=== PATIENT | male | born 1965 | race Caucasian/White ===

== ENCOUNTER 2017-05-01 10:35 | Day surgery (SDC) | payer MEDICAID ==
[~2017-05-01 10:35] MED LIST: Acetaminophen 500 MG Tab PO ONE; Bupivacaine 0.5%/EPINEPHrine 1:200,000 50 ML MDV ONE; EPINEPHrine 1 MG/ML SDV ONE; Gabapentin 300 MG Cap PO ONE; Povidone-Iodine 10% Soln 118.25 ML Bottle ONE; Scopolamine 1.5 MG Transdermal Patch TOP SCH
[2017-05-01] MEDS ORDERED: Lactated Ringers 1,000 ML IV SCH (11:30)
[2017-05-01] MEDS ORDERED: fentaNYL 250 MCG/5 ML SDV ONE (11:34)
[2017-05-01] MEDS ORDERED: Rocuronium 50 MG/5 ML Vial ONE (11:35)
[2017-05-01] MEDS ORDERED: Glycopyrrolate 0.2 MG/ML 5 ML MDV ONE (11:35)
[2017-05-01] MEDS ORDERED: Neostigmine Methylsulfate 1 MG/ML 5 ML Syringe ONE (11:35)
[2017-05-01] MEDS ORDERED: Succinylcholine 200 MG/10 ML MDV ONE (11:35)
[2017-05-01] MEDS ORDERED: Propofol 200 MG/20 ML SDV ONE ×2 (11:35→13:09)
[2017-05-01] MEDS ORDERED: Dexamethasone 4 MG/ML SDV ONE (11:35)
[2017-05-01] MEDS ORDERED: Ondansetron 4 MG/2 ML SDV ONE (11:35)
[2017-05-01] MEDS ORDERED: Bupivacaine 0.5% 30 ML SDV ONE (11:41)
[2017-05-01] MEDS ORDERED: Clindamycin Phosphate 900 MG in Sodium Chloride 0.9% 100 ML IV ONE (12:00)
[2017-05-01] MEDS ORDERED: Ropivacaine 49.25 ML, Ketorolac 30 MG, EPINEPHrine 0.5 MG, cloNIDine 80 MCG, Sodium Chl... INJECT ONE ×5 (12:15)
[2017-05-01] MEDS ORDERED: VERIFY SCOPOLAMINE PATCH TOP SCH (13:00)
[2017-05-01] MEDS ORDERED: ePHEDrine 50 MG/ML SDV ONE (13:09)
[2017-05-01] MEDS ORDERED: Ketorolac 60 MG/2 ML SDV IM ONE (14:30)
[2017-05-01 16:28] VITALS: BP 100/62
--- NOTE | 2017-05-01 19:34 | OR ---
DATE OF PROCEDURE: 05/01/2017 PREOPERATIVE DIAGNOSES: 1. Right shoulder rotator cuff tear. 2. Right shoulder impingement. 3. Right shoulder bursitis. POSTOPERATIVE DIAGNOSES: 1. Right shoulder rotator cuff tear. 2. Right shoulder impingement. 3. Right shoulder bursitis. PROCEDURE: 1. Right shoulder arthroscopy with subacromial decompression. 2. Limited debridement of glenohumeral joint, labrum, and subacromial space with bursa. 3. Mini open rotator cuff repair using 2 JuggerKnot anchors from [place] and 2 [place] anchors. SR. PAYROLL PROCESSOR: DEBRA Chu Physician assistant to the ceo, Rachael Grimaldo NP, played an essential role in assisting in this case, helping to position the patient, retract structures as needed, as well as suturing and cutting sutures as indicated. Her presence improved patient's safety and decreased operative time. ANESTHESIA: General endotracheal intubation plus interscalene block. ESTIMATED BLOOD LOSS: 25 mL. FLUIDS: Lactated Ringer solution. COMPLICATIONS: None. SPECIMEN: None. DISCHARGE DISPOSITION: Stable to PACU. INDICATIONS FOR THE PROCEDURE: The patient was seen preoperatively in the clinic. He had failed nonoperative treatment. Preoperative imaging confirmed the above-mentioned diagnosis. Risks and benefits of the procedure were explained to the patient, and informed consent was obtained. DETAILS OF PROCEDURE: The patient was seen preoperatively by myself and the anesthesia staff in the preop holding area where the operative site was marked. He was brought to the operative suite by the anesthesia staff for an interscalene block which was performed on the right side as well as general endotracheal intubation. He was placed into a beachchair position. All extremities were found to be well padded. The right upper extremity was then prepped and draped in a sterile manner. Time-out was called identifying the correct procedure, the correct site, the correct patient, and the antibiotics had begun within the appropriate period of time. A posterior portal was first made and then the glenohumeral joint was entered with a trocar. I was then able to see that we had some minor labral tearing as well as some synovitis as well as the preoperatively diagnosed rotator cuff tear present. I then used a spinal needle to place my anterior portal and then used a blade and a disposable trocar. I then debrided the glenohumeral joint and then used an ablation unit to clean up any free edges. After this had been performed, I then removed the instruments from the anterior portal and then from the posterior portal, repositioned in the subacromial space. Subacromial space was very tight. I had placed a lateral portal and then entered that with a shaver. Extensive bursitis was present. I spent a lot of time doing a bursectomy and then rotated the shoulder to see the rotator cuff tear from the subacromial space side. This was a large retracted rotator cuff tear of the supraspinatus and a few fibers of the infraspinatus. After the debridement was complete, I used the ablation unit to delineate the acromion, which was a type 2. I then used a andrés to perform my subacromial decompression removing the inferior hook of the acromion and then used ablation to clean up any free edges and to control any bleeding. After this had been performed, I then removed all my instruments and got out as much fluid as possible. I then made an incision approximately 1.5-cm lateral to the acromion due to the patient's size, and this was extended approximately 5 cm in an anterior to posterior direction. When bleeding was controlled with Bovie electrocautery, I used Metzenbaum as well as pickups to go through the raphae between the anterior and medial deltoid bundles. This spread quite nicely without any muscular dissection and then I used the Gelpi to go in an anterior-posterior direction for visualization and then used an [employer] [place] retractor to pull superiorly. This was a very tight space, but I was able to insert a Willa and then grab the retracted supraspinatus tendon. I then had to release this because I did not have enough room for suture passer. I then placed my posterior JuggerKnot anchor first and then used a suture passer to run all 4 strands through the posterior portion of the cuff. We then rotated the shoulder externally and then placed another JuggerKnot anchor anteriorly and then placed those sutures with the suture passer as well as free needles. We had tied these under tension. I then placed 2 lateral anchors starting posteriorly and then anteriorly and then used 2 strands from my posterior anchor, 2 strands from my anterior anchor to the posterior one and then the 2 again from each JuggerKnot anchor through the anterior anchor under tension. This provided excellent stability. I then felt my cuff which was nicely tensioned. We then copiously irrigated with saline and placed bobby through my anterior and posterior portals as well as bobby through the lateral incision after we placed a Stratafix through the raphae and the deltoid to close the joint. We did apply some injections with local anesthetic with epinephrine to control some bleeding. We then placed a sterile dressing and then transferred the patient to his hospital bed and allowed him to awaken from anesthesia. The patient was then transferred to the PACU in stable condition. Floyd Brown DO /[id number]
== END 2017-05-01 16:33 | disposition home or self-care (01) ==
LOC: JP.SDS 10:35
PROVIDERS: ATTEND Orthopaedic Surgery
DX: M75.121 Complete rotator cuff tear or rupture of right shoulder, not specified as traumatic (principal); M75.41 Impingement syndrome of right shoulder; M75.51 Bursitis of right shoulder; I10 Essential (primary) hypertension; F32.9 Major depressive disorder, single episode, unspecified; E66.01 Morbid (severe) obesity due to excess calories; K21.9 Gastro-esophageal reflux disease without esophagitis; Z88.0 Allergy status to penicillin; Z79.82 Long term (current) use of aspirin; Z79.899 Other long term (current) drug therapy; F17.200 Nicotine dependence, unspecified, uncomplicated
CPT/HCPCS: 23412; 29822; 29826; A9270; C1713; J0171; J0330; J1100; J1885; J2405; J2704; J3010; J7120; J2710; S0077

== ENCOUNTER 2017-05-08 20:15 | Emergency (ER) | payer MEDICAID ==
[2017-05-08] MEDS ORDERED: Albuterol 0.083% 2.5 MG/3 ML Neb Soln NEB ONE (21:27)
[2017-05-08 23:04] VITALS: BP 147/97
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
--- NOTE | 2017-05-09 09:03 | CR ---
Chest 2V HISTORY: sob FINDINGS: Lungs appear clear and normally aerated. Cardiomediastinal silhouette is within normal limits. No vas cular redistribution or pleural fluid can be seen. Bony structures and soft tissues are unremarkable. IMPRESSION: No acute chest abnormality is identified.
== END 2017-05-08 23:32 | disposition home or self-care (01) ==
LOC: JP.ED 20:15
DX: R06.02 Shortness of breath (principal); I10 Essential (primary) hypertension; Z88.0 Allergy status to penicillin; Z79.82 Long term (current) use of aspirin; Z79.899 Other long term (current) drug therapy; Z87.891 Personal history of nicotine dependence; Z98.890 Other specified postprocedural states
CPT/HCPCS: 36415; 71046; 71046-26; 80053; 83880; 84484; 85025; 93005; 94640; 99285-25

== ENCOUNTER 2017-05-20 06:33 | Emergency (ER) | payer MEDICAID ==
[2017-05-20 06:57] VITALS: BP 162/101
[2017-05-20] MEDS ORDERED: predniSONE 20 MG Tab PO ONE (07:22)
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
== END 2017-05-20 07:44 | disposition home or self-care (01) ==
LOC: JP.ED 06:33
DX: M25.521 Pain in right elbow (principal); K21.9 Gastro-esophageal reflux disease without esophagitis; I10 Essential (primary) hypertension; E66.9 Obesity, unspecified; Z98.890 Other specified postprocedural states; Z79.82 Long term (current) use of aspirin; Z87.442 Personal history of urinary calculi; Z88.0 Allergy status to penicillin; Z79.899 Other long term (current) drug therapy; Z68.25 Body mass index [BMI] 25.0-25.9, adult
CPT/HCPCS: 99283; A9270

== ENCOUNTER 2019-05-21 07:26 | Observation (INO) | payer MEDICAID ==
[~2019-05-21 07:26] MED LIST changes: -Acetaminophen 500 MG Tab PO ONE; +Bupivacaine 0.5% 30 ML SDV ONE; -Bupivacaine 0.5%/EPINEPHrine 1:200,000 50 ML MDV ONE; +Dexamethasone 4 MG/ML SDV ONE; -EPINEPHrine 1 MG/ML SDV ONE; -Gabapentin 300 MG Cap PO ONE; +Glycopyrrolate 0.2 MG/ML 5 ML MDV ONE; +Neostigmine Methylsulfate 1 MG/ML 5 ML Syringe ONE; +Ondansetron 4 MG/2 ML SDV ONE; -Povidone-Iodine 10% Soln 118.25 ML Bottle ONE; +Propofol 200 MG/20 ML SDV ONE; +Rocuronium 50 MG/5 ML Vial ONE; -Scopolamine 1.5 MG Transdermal Patch TOP SCH; +Succinylcholine 200 MG/10 ML MDV ONE; +fentaNYL 250 MCG/5 ML SDV ONE
[2019-05-21] MEDS ORDERED: Lactated Ringers 1,000 ML IV SCH (08:00)
[2019-05-21] MEDS ORDERED: Nozin Nasal Sanitizer NASBOTH ONE (08:00)
[2019-05-21] MEDS ORDERED: ceFAZolin 2 GM in Premix Bag 1 BAG IV ONE (08:00)
[2019-05-21] MEDS ORDERED: Bupivacaine 0.5% 30 ML SDV ONE (09:20)
[2019-05-21] MEDS ORDERED: Lactated Ringers 1,000 ML ONE (11:35)
[2019-05-21] MEDS ORDERED: Ketorolac 60 MG/2 ML SDV ONE (13:47)
[2019-05-21] MEDS ORDERED: Albuterol/Ipratropium 3.0-0.5 MG/3 ML Neb Soln NEB ONE (14:45)
[2019-05-21] MEDS ORDERED: Acetaminophen/oxyCODONE 325-5 MG Tab PO PRN (14:45)
[2019-05-21] MEDS ORDERED: Racepinephrine 2.25% 0.5 ML Neb Soln NEB STA (16:55)
[2019-05-21] MEDS ORDERED: Sodium Chloride 0.9% Inhalation Soln 3 ML Neb INH ONE (16:55)
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
--- NOTE | 2019-05-21 17:49 | OR ---
DATE OF PROCEDURE: 05/21/2019 SURGEON: Fredrick Mcguire MD PREOPERATIVE DIAGNOSES: 1. Osteophyte, right calcaneus at the Achilles insertion. 2. Left rotator cuff tear. 3. Acromioclavicular arthrosis. POSTOPERATIVE DIAGNOSES: 1. Osteophyte, right calcaneus at the Achilles insertion. 2. Left rotator cuff tear. 3. Acromioclavicular arthrosis. PROCEDURES: 1. Excision of insertional osteophyte, right calcaneus, with repair of Achilles tendon. 2. Arthroscopy, left shoulder, with arthroscopic decompression and distal clavicle resection (Jose G procedure). 3. Arthroscopic rotator cuff repair. ANESTHESIA: General with interscalene block. INDICATIONS: Mr. Bush is a 54-year-old gentleman with a history of progressive pain in his right foot for the past year. He has 2 bony protuberances on the posterior aspect of the heel, which make shoe wear difficult. He has pain with any pressure on them. X-rays reveal a traction osteophyte at the insertion of the Achilles. It is tender to palpation, very palpable, and has an inflamed bursa forming over it. This is not Nadine's deformity. He also was having increasing left shoulder pain, particularly with overhead reaching and pushing. He has a history of rotator cuff tear on his right side and reports this feels similar. Examination and MRI are consistent with a full-thickness rotator cuff tear and MRI showing a tear with no significant retraction. Also, he has tenderness at the AC joint and significant arthrosis on MRI. Plan arthroscopic rotator cuff repair and distal clavicle resection. Risks, benefits, and potential complications of the procedure were discussed. DESCRIPTION OF PROCEDURE: After interscalene block and general anesthesia was obtained, the patient was initially placed prone with all bony prominences well padded. The right lower extremity was then prepped and draped below the knee. Tourniquet was inflated. Incision was then made along the lateral aspect of the distal Achilles and curved medially just beneath the bony prominences. This was elevated as a full-thickness flap. Beginning from the lateral side, where the majority of the osteophyte was, the Achilles was elevated off the osteophyte using a 15 blade. This continued medially until the entire osteophyte was exposed. Osteophyte was then removed with a rongeur, and the posterior aspect of the heel was contoured. It was then irrigated. A drill hole was then made into the calcaneus and a helix anchor was placed. Sutures were then brought up into the Achilles in a Frederick-type fashion. The initial set of sutures was tied down with the foot in plantar flexion. The 2nd set of sutures was woven proximal to this and tied in place so the knot was not prominent. The 1st set of sutures was then passed back through the tendon in order to have the suture knot lay flush and tied once again on the more lateral surface of the Achilles. This resulted in secure fixation of the lateral portion of the Achilles. The medial portion of the Achilles was left intact. The skin was then closed with 2-0 Vicryl and a running 3-0 Monocryl. Steri-Strips were applied. Sterile dressing was then placed after infiltrating with Marcaine 0.25%. The patient was then transferred onto a gurney in a supine position and transferred back to the operating table in a lateral decubitus position and secured with the beanbag positioner. All bony prominences were well padded. Axillary pad was placed. The left shoulder and arm were then prepped and draped in a sterile fashion. 10 pounds of traction was placed in the shoulder traction unit. A standard posterior portal was established. The glenohumeral joint was inspected, and this revealed intact articular cartilage in the humeral head and glenoid. Some minor fraying was present of the anterior and superior labrum without labral tear. No SLAP tear was present. Biceps was intact with no evidence of tendinopathy. Subscapularis was intact. The undersurface of the rotator cuff showed a very thin layer still intact on the articular side, but this was almost translucent, adjacent to the biceps tendon. The more posterior aspect of the rotator (infraspinatus) was intact. Anterior portal was established. The biceps was further explored as was the labrum, with no other pathology noted. Minor fraying of the labrum was very lightly debrided. The scope was then withdrawn and placed in the subacromial space. Lateral portal was established, and the bursa was resected for visualization. Significant impingement noted from the coracoacromial ligament and anterolateral aspect of the acromion as well as the AC joint was noted. Undersurface of the acromion was cleared of soft tissue with the radiofrequency ablation wand. Acromioplasty was then performed using a andrés, removing the anterolateral aspect and bevelling this posteriorly and medially. Resection on the undersurface was carried over to the AC joint. Radiofrequency wand was then used to resect the capsule from the underside of the AC joint. Working from the lateral portal, the undersurface of the clavicle was resected for a distance of 6 to 8 mm. Once the limit of this approach was reached, a andrés was then placed through the anterior portal and resection continued from anterior to posterior removing approximately 8 mm of the distal clavicle. Attention was then returned to the rotator cuff. Further evaluation revealed essentially full-thickness tear along the insertion of the anterior aspect of the supraspinatus. The edges of the tear were somewhat frayed. Edges of the tendon were debrided with a shaver, and the superior aspect of the tuberosity was lightly decorticated with a andrés. 2 Mitek 4.5 helix anchors were then placed. Sutures from the posterior anchor set were passed through the tendon 1st. One suture set was brought up in a mattress fashion using the CortexicaEW device. The 2nd set of sutures was placed in a simple suture configuration passing just one of the suture strands through the tendon. This process was repeated for the anterior 2 pairs, placing one pair in a mattress fashion and the 2nd pair in a simple fashion. The sutures were then tied down from posterior to anterior using standard arthroscopic technique. The two simple sutures were then cut. The remaining two suture sets were to be used for a knotless lateral-row repair. However, during the process of cutting the two simple sutures, one pair of the mattress sutures was also cut inadvertently. This left one suture pair to use as a suture bridge. Two sutures were passed through a Mitek Knotless anchor. Bone tunnel was made off the lateral edge of the tuberosity. Knotless anchor was then secured in position with good tension on the suture. Sutures were then cut flush. Inspection of the repair showed good approximation of the tendon to the tuberosity. The level of the acromioplasty and distal clavicle resection were adequate. Shoulder was drained, scope was removed, and the portals were then closed using 2-0 Vicryl in the deep layer and 3-0 Monocryl in a subcuticular stitch. Steri-Strips were applied. Sterile dressing was then placed. The patient was then placed back onto [facility] in a supine position and a CAM boot was fitted to the right foot. The patient tolerated the procedure well. There were no complications. He was taken from the operating room in stable condition. Fredrick Mcguire MD /[id number] MTDD
[2019-05-21] MEDS ORDERED: Acetaminophen 325 MG Tab PO PRN (17:50)
[2019-05-21] MEDS ORDERED: Ondansetron 4 MG/2 ML SDV IV PRN (17:50)
[2019-05-21] MEDS ORDERED: Sodium Chloride 0.9% Inhalation Soln 3 ML Neb INH PRN (17:50)
[2019-05-21] MEDS ORDERED: Sodium Chloride 0.9% 10 ML Syringe FLUSH PRN (17:50)
[2019-05-21] MEDS ORDERED: Polyethylene Glycol 3350 Powder 17 GM Packet PO PRN (17:50)
[2019-05-21] MEDS ORDERED: Racepinephrine 2.25% 0.5 ML Neb Soln NEB PRN (17:50)
[2019-05-21] MEDS: oxyCODONE 5 MG Tab PO PRN (20:42)
[2019-05-21] MEDS: Pregabalin 75 MG Cap PO SCH (20:44)
[2019-05-21] MEDS: Metoprolol Tartrate 50 MG Tab PO SCH (20:44)
[2019-05-21] MEDS ORDERED: Baclofen 10 MG Tab PO SCH (21:00)
[2019-05-21] MEDS ORDERED: traZODone 50 MG Tab PO SCH (21:00)
[2019-05-21] MEDS ORDERED: Magnesium Oxide 400 MG Tab PO SCH (21:00)
[2019-05-22] MEDS: oxyCODONE 5 MG Tab PO PRN ×3 (00:09→08:09)
[2019-05-22 07:08] VITALS: BP 105/75
[2019-05-22] MEDS ORDERED: Pantoprazole 40 MG Tab.CR PO SCH (07:30)
[2019-05-22] MEDS: Pregabalin 75 MG Cap PO SCH (08:19)
[2019-05-22] MEDS: Metoprolol Tartrate 50 MG Tab PO SCH (08:19)
[2019-05-22 08:20] VITALS: PULSE 85
[2019-05-22] MEDS ORDERED: buPROPion 150 MG Tab.ER PO SCH (09:00)
[2019-05-22] MEDS ORDERED: Sertraline 50 MG Tab PO SCH (09:00)
[2019-05-22] MEDS ORDERED: Losartan 50 MG Tab PO SCH (09:00)
--- NOTE | 2019-05-22 09:04 | PCM.DCSUM1 ---
Discharge Summary - Hospital Course Brief History: Mr. Bush is a 54-year-old gentleman who was admitted to observation status from daycare teacher unit for management of hypoxia secondary to laryngeal spasm. - Discharge Data Discharge Date: 05/22/19 Discharge Disposition: Home, Self-Care 01 Condition: Fair - Referral to Home Health Primary Care Physician: Alexis Belle MD - Discharge Diagnosis/Problem(s) (1) Laryngeal spasm SNOMED Code(s): 618942895 ICD Code: J38.5 - LARYNGEAL SPASM Status: Acute Current Visit: Yes (2) Inspiratory stridor SNOMED Code(s): 56109004 ICD Code: R06.1 - STRIDOR Status: Acute Current Visit: Yes (3) Hypoxia SNOMED Code(s): 245868400 ICD Code: R09.02 - HYPOXEMIA Status: Acute Current Visit: Yes (4) Status post Achilles tendon repair SNOMED Code(s): 01071401384251, 549214307, 43676841821311 ICD Code: Z98.890 - OTHER SPECIFIED POSTPROCEDURAL STATES Status: Acute Current Visit: Yes Problem Details: Right (5) S/P left rotator cuff repair SNOMED Code(s): 239205315, 341582088 ICD Code: Z98.890 - OTHER SPECIFIED POSTPROCEDURAL STATES Status: Acute Current Visit: Yes - Patient Summary/Data Hospital Course: Mr. Bush is a 54-year-old gentleman who is admitted from daycare teacher to observation status for management of hypoxia secondary to laryngeal spasm. He came in today for outpatient surgery, repair of a left rotator cuff tear as well as a right Achilles tendon repair. He has a history of previous traumatic injury requiring tracheostomy. After that episode did have some difficulty with breathing and shortness of breath, especially breathing in. He had been seen and evaluated previously by ENT and no specific etiology was identified. He has had no difficulty with breathing for some time and felt well when he presented for surgery this morning. After surgery he reports difficulty breathing and and was found to be hypoxic requiring supplemental oxygen. He denies any symptoms of chest pain or pressure. Vital signs have otherwise been stable and he has been afebrile. He denies any previous history of significant pulmonary or cardiac disease. While in the daycare teacher unit he did receive racemic epinephrine nebulizer treatment which improved his symptoms significantly. He was admitted to the hospital on observation status and remained stable through the night, noting a gradual improvement in his breathing. On the morning of discharge he felt as though his breathing was almost back to normal and had good oxygen saturations on room air. Activity will be as instructed by Dr. Mcguire and he will resume his usual diet. - Patient Instructions Diet: Usual Diet as Tolerated Activity: As Tolerated - Discharge Plan *PRESCRIPTION DRUG MONITORING PROGRAM REVIEWED*: Not Applicable *COPY OF PRESCRIPTION DRUG MONITORING REPORT IN PATIENT [place]: Not Applicable Home Medications: Home Meds Indomethacin [Indocin] 50 mg PO TIDMEALS PRN 11/16/14 [History] Losartan [Cozaar] 50 mg PO DAILY 11/16/14 [History] Metoprolol Tartrate [Lopressor] 50 mg PO BID 11/16/14 [History] Sertraline HCl 200 mg PO DAILY 11/16/14 [History] Baclofen 10 mg PO BEDTIME 04/27/17 [History] buPROPion HCl [Wellbutrin Xl] 300 mg PO DAILY 04/27/17 [History] Acetaminophen/HYDROcodone [Calvin 325-5 MG] 1 tab PO Q6H PRN 05/19/19 [History] Cetirizine HCl 10 - 20 mg PO BEDTIME PRN 05/19/19 [History] Cholecalciferol (Vitamin D3) [Vitamin D] 5,000 unit PO DAILY 05/19/19 [History] Magnesium Oxide [Magnesium] 400 mg PO BEDTIME 05/19/19 [History] Meclizine [Antivert] 25 mg PO TID PRN 05/19/19 [History] Naltrexone 25 mg PO BID PRN 05/19/19 [History] Omeprazole Magnesium [Prilosec Otc] 20 mg PO DAILY 05/19/19 [History] Pregabalin [Lyrica] 75 mg PO BID 05/19/19 [History] traZODone 50 - 100 mg PO BEDTIME PRN 05/19/19 [History] Referrals: Fredrick Mcguire MD [Physician] - 06/05/19 9:15 am (Please arrive 15 minutes early to register for your appointment.) - Discharge Summary/Plan Comment DC Time >30 min.: No - Patient Data Vitals - Most Recent: Last Vital Signs Temp 98.5 F 05/22/19 04:00 Pulse 85 05/22/19 08:19 Resp 16 05/22/19 07:05 BP 105/75 05/22/19 08:19 Pulse Ox 95 05/22/19 07:16 Weight - Most Recent: 251 lb I&O - Last 24 hours: Intake & Output 05/21/19 05/22/19 05/22/19 22:59 06:59 14:59 Intake Total 940 Output Total 150 Balance -150 940 Lab Results - Last 24 hrs: Laboratory Results - last 24 hr 05/21/19 05/21/19 Range/Units 18:00 18:00 WBC 9.7 (4.5-11.0) K/uL RBC 5.17 (4.30-5.90) M/uL Hgb 15.5 H (12.0-15.0) g/dL Hct 47.9 (40.0-54.0) % MCV 93 (80-98) fL MCH 30 (27-31) pg MCHC 32 (32-36) % Plt Count 169 (150-400) K/uL Neut % (Auto) 92 H (36-66) % Lymph % (Auto) 6 L (24-44) % [place] % (Auto) 2 (2-6) % Eos % (Auto) 0 L (2-4) % Baso % (Auto) 0 (0-1) % Sodium 136 L (140-148) mmol/L Potassium 4.5 (3.6-5.2) mmol/L Chloride 102 (100-108) mmol/L Carbon Dioxide 25 (21-32) mmol/L Anion Gap 13.5 (5.0-14.0) mmol/L BUN 14 (7-18) mg/dL Creatinine 1.3 (0.8-1.3) mg/dL Est Cr Clr Drug Dosing 102.17 mL/min Estimated GFR (MDRD) 57 L (>60) Glucose 146 H (74-106) mg/dL Calcium 8.5 (8.5-10.1) mg/dL Med Orders - Current: Current Medications Acetaminophen (Tylenol) 650 mg PO Q4H PRN PRN Reason: Pain Baclofen (Lioresal) 10 mg PO BEDTIME MARGARET Last Admin: 05/21/19 20:44 Dose: Not Given Bupropion HCl (Wellbutrin Xl) 300 mg PO DAILY MARGARET Last Admin: 05/22/19 08:11 Dose: 300 mg Losartan Potassium (Cozaar) 50 mg PO DAILY [facility] Last Admin: 05/22/19 08:19 Dose: 50 mg Magnesium Oxide (Magnesium Oxide) 400 mg PO BEDTIME [facility] Last Admin: 05/21/19 20:44 Dose: Not Given Metoprolol Tartrate (Lopressor) 50 mg PO BID [facility] Last Admin: 05/22/19 08:19 Dose: 50 mg Ondansetron HCl (Zofran) 4 mg IV Q4H PRN PRN Reason: Nausea/Vomiting Oxycodone HCl (Oxycodone) 0 mg PO Q4H PRN PRN Reason: Pain Last Admin: 05/22/19 08:09 Dose: 10 mg Pantoprazole Sodium (Protonix) 40 mg PO ACBREAKFAST [facility] Last Admin: 05/22/19 08:11 Dose: 40 mg Polyethylene Glycol (Miralax) 17 gm PO DAILY PRN PRN Reason: Constipation Pregabalin (Lyrica) 75 mg PO BID [facility] Last Admin: 05/22/19 08:19 Dose: 75 mg Racepinephrine (S-2 2.25%) 0.5 ml NEB Q2H PRN PRN Reason: Dyspnea Sertraline HCl (Zoloft) 200 mg PO DAILY [facility] Last Admin: 05/22/19 08:11 Dose: 200 mg Sodium Chloride (Saline Flush) 10 ml FLUSH ASDIRECTED PRN PRN Reason: Keep Vein Open Sodium Chloride (Sodium Chloride 0.9%) 3 ml INH ASDIRECTED PRN PRN Reason: mix with racepinephrine neb Trazodone HCl (Trazodone) 50 mg PO BEDTIME [facility] Last Admin: 05/21/19 20:44 Dose: 50 mg Discontinued Medications Albuterol/Ipratropium (Duoneb 3.0-0.5 Mg/3 Ml) 3 ml NEB ONETIME ONE Stop: 05/21/19 14:46 Last Admin: 05/21/19 14:56 Dose: 3 ml Bandage/Support Products ( Nasal Cloth Calender) 1 applic NASBOTH ONETIME ONE Stop: 05/21/19 08:01 Last Admin: 05/21/19 08:00 Dose: 1 applic Bupivacaine HCl (Marcaine 0.5%) Confirm Administered Dose 30 ml .ROUTE .STK-MED ONE Stop: 04/15/20 06:46 Last Admin: 05/21/19 11:13 Dose: 15 ml Bupivacaine HCl (Marcaine 0.5%) Confirm Administered Dose 60 ml .ROUTE .STK-MED ONE Stop: 05/21/19 07:23 Bupivacaine HCl (Marcaine 0.5%) Confirm Administered Dose 30 ml .ROUTE .STK-MED ONE Stop: 05/21/19 09:21 Last Admin: 05/21/19 11:15 Dose: 30 ml Dexamethasone (Dexamethasone) Confirm Administered Dose 4 mg .ROUTE .STK-MED ONE Stop: 05/21/19 07:23 Fentanyl (Sublimaze) Confirm Administered Dose 250 mcg .ROUTE .STK-MED ONE Stop: 05/21/19 07:23 Glycopyrrolate (Robinul) Confirm Administered Dose 1 mg .ROUTE .STK-MED ONE Stop: 05/21/19 07:23 Cefazolin Sodium/Dextrose 2 gm (/ Premix) 50 mls @ 100 mls/hr IV ONETIME ONE Stop: 05/21/19 08:29 Last Admin: 05/21/19 10:19 Dose: 100 mls/hr Lactated Ringer's (Ringers, Lactated) 1,000 mls @ 75 mls/hr IV ASDIRECTED MARGARET Last Admin: 05/21/19 08:36 Dose: 75 mls/hr Lactated Ringer's (Ringers, Lactated) Confirm Administered Dose 1,000 mls @ as directed .ROUTE .STK-MED ONE Stop: 05/21/19 11:36 Ketorolac Tromethamine (Toradol) Confirm Administered Dose 60 mg .ROUTE .STK- MED ONE Stop: 05/21/19 13:48 Neostigmine Methylsulfate (Neostigmine) Confirm Administered Dose 5 mg .ROUTE .STK-MED ONE Stop: 05/21/19 07:23 Ondansetron HCl (Zofran) Confirm Administered Dose 4 mg .ROUTE .STK-MED ONE Stop: 05/21/19 07:23 Oxycodone/Acetaminophen (Percocet 325-5 Mg) 1 tab PO ONETIME PRN PRN Reason: Pain Last Admin: 05/21/19 15:15 Dose: 1 tab Propofol (Diprivan 20 Ml) Confirm Administered Dose 200 mg .ROUTE .STK-MED ONE Stop: 05/21/19 07:23 Racepinephrine (S-2 2.25%) 0.5 ml NEB ONETIME STA Stop: 05/21/19 16:56 Last Admin: 05/21/19 17:07 Dose: 0.5 ml Rocuronium [place] (Zemuron) Confirm Administered Dose 50 mg .ROUTE .STK-MED ONE Stop: 05/21/19 07:23 Sodium Chloride (Sodium Chloride 0.9%) 3 ml INH ONETIME ONE Stop: 05/21/19 16:56 Last Admin: 05/21/19 17:07 Dose: 3 ml Succinylcholine Chloride (Quelicin) Confirm Administered Dose 200 mg .ROUTE .STK -MED ONE Stop: 05/21/19 07:23
--- NOTE | 2019-05-22 10:03 | CR ---
CHEST: 2 view CLINICAL HISTORY:Hypoxia COMPARISON:2018 FINDINGS: Heart is enlarged. Pulmonary vascularity is normal. There is some volume loss in the left lung base with elevation left hemidiaphragm. This is new since prior study. There are atherosclerotic changes in the aorta. No effusion is seen. IMPRESSION: Left lower lobe and lingular airspace disease most of which appears to be volume loss Cardiomegaly
== END 2019-05-22 11:00 | disposition home or self-care (01) ==
LOC: JP.SDS 07:26 → JP.MS 17:04
PROVIDERS: ADMIT Hospitalist; ATTEND Hospitalist
DX: M75.122 Complete rotator cuff tear or rupture of left shoulder, not specified as traumatic (principal); M25.774 Osteophyte, right foot; M19.012 Primary osteoarthritis, left shoulder; J38.5 Laryngeal spasm; R06.02 Shortness of breath; I10 Essential (primary) hypertension; K21.9 Gastro-esophageal reflux disease without esophagitis; F32.9 Major depressive disorder, single episode, unspecified; G47.33 Obstructive sleep apnea (adult) (pediatric); E66.9 Obesity, unspecified; Z88.0 Allergy status to penicillin; Z88.8 Allergy status to other drugs, medicaments and biological substances; Z87.891 Personal history of nicotine dependence; Z99.11 Dependence on respirator [ventilator] status; Z79.899 Other long term (current) drug therapy; Z68.38 Body mass index [BMI] 38.0-38.9, adult
CPT/HCPCS: 36415; 71046; 71046-26; 80048; 85025; 94640; 94762; A9270-GY; C1713; G0378; J0330; J0690; J1100; J1885; J2405; J2704; J2710; J3010; J3490; J7120; J7620-GY

== ENCOUNTER 2020-04-23 16:00 | Emergency (ER) | payer MEDICAID ==
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
[2020-04-23 17:41] VITALS: BP 120/74; PULSE 46
--- NOTE | 2020-04-26 08:56 | CR ---
CHEST: 2 view CLINICAL HISTORY:Dyspnea COMPARISON:May 2019 FINDINGS: The heart size, pulmonary vascularity and hilar structures are normal. No infiltrate effusion or pneumothorax is seen. There are atherosclerotic changes in the aorta. IMPRESSION: No acute cardiopulmonary process.
== END 2020-04-23 18:00 | disposition home or self-care (01) ==
LOC: JP.ED 16:00
DX: R07.89 Other chest pain (principal); I10 Essential (primary) hypertension; K21.9 Gastro-esophageal reflux disease without esophagitis; E66.9 Obesity, unspecified; F17.210 Nicotine dependence, cigarettes, uncomplicated; Z88.8 Allergy status to other drugs, medicaments and biological substances; Z88.0 Allergy status to penicillin; Z79.899 Other long term (current) drug therapy; Z68.37 Body mass index [BMI] 37.0-37.9, adult
CPT/HCPCS: 36415; 71046; 71046-26; 80048; 85025; 85379; 99283; 99285-25

== ENCOUNTER 2020-04-25 17:05 | Emergency (ER) | payer MEDICAID ==
[2020-04-25] MEDS ORDERED: Aspirin 81 MG Tab.Chew ONE (17:09)
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
[2020-04-25] MEDS ORDERED: Aspirin 81 MG Tab.Chew PO ONE (17:52)
[2020-04-25] MEDS ORDERED: Sodium Chloride 0.9% 10 ML Syringe FLUSH ONE (18:39)
[2020-04-25] MEDS ORDERED: Sodium Chloride 0.9% 1,000 ML IV SCH (18:45)
[2020-04-25] MEDS ORDERED: Sodium Chloride 0.9% 75 ML IV SCH (18:45)
[2020-04-25] MEDS ORDERED: Iopamidol 612 MG/ML 100 ML Bottle IV SCH (18:45)
[2020-04-25 20:00] VITALS: BP 125/78; PULSE 55
--- NOTE | 2020-04-25 20:11 | CRLCT ---
INDICATION: Right-sided chest pain. COMPARISON: Chest radiograph 04/23/2020. TECHNIQUE: CT of the chest with 100 cc of Isovue 300 IV contrast. Coronal and sagittal reconstructions. 3D post processing was performed. FINDINGS: Normal heart size. Normal caliber thoracic aorta and central pulmonary arteries. No large or central pulmonary embolism. No pericardial effusion. No thoracic lymphadenopathy. No focal consolidation, pleural effusion, or pneumothorax. 4 mm noncalcified pulmonary nodule along the left major fissure (series 3, image 39). No central endobronchial lesion or significant bronchial wall thickening. The thyroid gland is normal in appearance. Splenule. Fatty infiltration of the pancreas. The visualized upper abdomen is otherwise unremarkable. Degenerative changes of the spine. Chronic compression fractures of T5-T7. IMPRESSION: 1. No acute findings in the chest. 2. 4 mm noncalcified pulmonary nodule along the left major fissure. Please see follow-up guidelines below. [employer] GUID[employer]INES - SOLID NODULES: : SINGLE LOW RISK - nodule less than 6 mm: No routine follow-up. - nodule 6-8 mm: CT at 6-12 months, then consider CT at 18-24 months. - nodule greater than 8 mm: Consider CT at 3 months, PET/CT or tissue sampling. SINGLE HIGH RISK - nodule less than 6 mm: Optional CT at 12 months. - nodule 6-8 mm: CT at 6-12 months, then CT at 18-24 months. - nodule greater than 8 mm: Consider CT at 3 months, PET/CT or tissue sampling. Please note that all CT scans at this facility use dose modulation, iterative reconstruction, and/or weight-based dosing when appropriate to reduce radiation dose to as low as reasonably achievable. Dictated by Camryn Beavers MD @ Apr 25 2020 8:02PM Signed by Dr. Camryn Beavers @ Apr 25 2020 8:10PM
== END 2020-04-25 20:53 | disposition home or self-care (01) ==
LOC: JP.ED 17:05
DX: R07.89 Other chest pain (principal); I10 Essential (primary) hypertension; K21.9 Gastro-esophageal reflux disease without esophagitis; E66.9 Obesity, unspecified; Z68.36 Body mass index [BMI] 36.0-36.9, adult; Z72.0 Tobacco use; Z88.6 Allergy status to analgesic agent; Z88.0 Allergy status to penicillin; Z79.899 Other long term (current) drug therapy
CPT/HCPCS: 36415; 71260; 80053; 84484; 85025; 86140; 93005; 99284; 99285-25; A9270-GY; Q9967

== ENCOUNTER 2020-05-05 10:45 | Emergency (ER) | payer MEDICAID ==
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
[2020-05-05] MEDS ORDERED: Aspirin 81 MG Tab.Chew PO ONE (11:58)
[2020-05-05] MEDS ORDERED: Alum Hydrox/Mag Hydrox/Simeth 15 ML, Lidocaine 2% 15 ML PO ONE ×2 (11:59)
[2020-05-05 12:17] VITALS: BP 149/83; PULSE 49
--- NOTE | 2020-05-05 13:47 | US ---
Abdomen Ltd CLINICAL HISTORY: Right upper quadrant pain COMPARISON: None. TECHNIQUE: Real-time images were obtained through the right upper quadrant. FINDINGS: The liver is free of mass or biliary dilatation. There is some fatty infiltration. Left lobe is not fully visualized due to body habitus.. The gallbladder has a normal appearance. The common bile duct measures 3 mm. The pancreas is is diffusely echogenic. The right kidney measures 10.9 x 5.7 x 5.4 cm. Cortical thickness is 1.9 cm.. The IVC is normal. IMPRESSION: Fatty infiltration liver. Limited evaluation. Left lobe is not visualized due to body habitus. Echogenic pancreas may represent some fatty infiltration. No focal mass or abnormal fluid collections are seen
== END 2020-05-05 14:36 | disposition home or self-care (01) ==
LOC: JP.ED 10:45
DX: R07.89 Other chest pain (principal); I10 Essential (primary) hypertension; K21.9 Gastro-esophageal reflux disease without esophagitis; E66.9 Obesity, unspecified; Z68.36 Body mass index [BMI] 36.0-36.9, adult; Z88.0 Allergy status to penicillin; Z88.8 Allergy status to other drugs, medicaments and biological substances; Z79.899 Other long term (current) drug therapy
CPT/HCPCS: 36415; 76705; 76705-26; 80053; 83605; 83690; 84484; 85025; 93005; 99283; 99285-25; A9270-GY

== ENCOUNTER 2022-04-05 18:25 | Emergency (ER) | payer BC, MEDICAID ==
[2022-04-05] MEDS ORDERED: Alum Hydrox/Mag Hydrox/Simeth 15 ML, Lidocaine 2% 15 ML PO ONE ×2 (18:54)
[2022-04-05 19:05] LABS: TROPONIN I HIGH SENSITIVITY 5.8 pg/mL (<=60.3)
[2022-04-05 22:00] VITALS: BP 138/82; PULSE 57
== END 2022-04-05 22:13 | disposition home or self-care (01) ==
LOC: JP.ED 18:25
DX: R07.89 Other chest pain (principal); I10 Essential (primary) hypertension; K21.9 Gastro-esophageal reflux disease without esophagitis; E66.9 Obesity, unspecified; Z68.36 Body mass index [BMI] 36.0-36.9, adult; Z88.0 Allergy status to penicillin; Z88.8 Allergy status to other drugs, medicaments and biological substances; Z79.82 Long term (current) use of aspirin; Z79.899 Other long term (current) drug therapy
CPT/HCPCS: 36415; 71046; 80048; 84484; 85025; 85379; 85610; 85730; 93005; 99285; A9270; 93010; 99284

== ENCOUNTER 2022-08-12 02:37 | Emergency (ER) | payer BC, MEDICAID ==
[2022-08-12 03:00] VITALS: BP 154/88; PULSE 54
== END 2022-08-12 03:26 | disposition home or self-care (01) ==
LOC: JP.ED 02:37
DX: M72.2 Plantar fascial fibromatosis (principal); I25.10 Atherosclerotic heart disease of native coronary artery without angina pectoris; E78.00 Pure hypercholesterolemia, unspecified; I10 Essential (primary) hypertension; K21.9 Gastro-esophageal reflux disease without esophagitis; E66.9 Obesity, unspecified; Z88.0 Allergy status to penicillin; Z88.8 Allergy status to other drugs, medicaments and biological substances; Z79.899 Other long term (current) drug therapy; Z86.16 Personal history of COVID-19; Z72.0 Tobacco use; Z68.34 Body mass index [BMI] 34.0-34.9, adult
CPT/HCPCS: 99283

== ENCOUNTER 2022-12-24 11:15 | Emergency (ER) | payer OTHER, BC ==
[2022-12-24 11:30] VITALS: BP 144/94; PULSE 88
[2022-12-24] MEDS ORDERED: Ketorolac 30 MG/ML SDV IM ONE (11:56)
== END 2022-12-24 12:46 | disposition home or self-care (01) ==
LOC: JP.ED 11:15
DX: S49.91XA Unspecified injury of right shoulder and upper arm, initial encounter (principal); I10 Essential (primary) hypertension; K21.9 Gastro-esophageal reflux disease without esophagitis; E66.9 Obesity, unspecified; Z68.33 Body mass index [BMI] 33.0-33.9, adult; Z79.899 Other long term (current) drug therapy; Z79.82 Long term (current) use of aspirin; Z86.16 Personal history of COVID-19; Z88.0 Allergy status to penicillin; Z88.8 Allergy status to other drugs, medicaments and biological substances; W18.40XA Slipping, tripping and stumbling without falling, unspecified, initial encounter; Y99.0 Civilian activity done for income or pay
CPT/HCPCS: 73030; 96372; 99001; 99283; J1885

== ENCOUNTER 2023-02-21 21:42 | Emergency (ER) | payer BC, OTHER ==
[2023-02-21 21:57] LABS: BASOPHILS ABSOLUTE AUTO 0.09 K/uL (0.00-0.10); BASOPHILS PERCENT AUTO 1.3 % (0.1-1.3); EOSINOPHILS ABSOLUTE AUTO 0.26 K/uL (0.00-0.40); EOSINOPHILS PERCENT AUTO 3.8 % (0.0-5.4); HEMATOCRIT 45.4 % (38.4-49.7); HEMOGLOBIN 15.6 g/dL (12.9-16.9); LYMPHOCYTES ABSOLUTE AUTO 1.48 K/uL (0.8-3.3); LYMPHOCYTES PERCENT AUTO 21.4 % (11.4-47.7); MEAN CORPUSCULAR HEMOGLOBIN 31.2 pg (31.6-35.5); MEAN CORPUSCULAR HGB CONC 34.4 g/dL (31.6-35.5); MEAN CORPUSCULAR VOLUME 90.8 fL (81.4-99.0); MONOCYTES ABSOLUTE AUTO 0.78 K/uL (0.20-0.90); MONOCYTES PERCENT AUTO 11.3 % (3.3-12.6); NEUTROPHILS ABSOLUTE AUTO 4.32 K/uL (1.0-7.6); NEUTROPHILS PERCENT AUTO 62.2 % (40.0-78.1); PLATELET COUNT,PLT 209 K/uL (130-375); WHITE BLOOD CELL COUNT,WBC 6.9 K/uL (3.2-11.0)
[2023-02-21 22:20] LABS: CALCIUM 8.9 mg/dL (8.5-10.1); CREATININE 1.1 mg/dL (0.8-1.3); EST CRCL DRUG DOSING (CG) 71.41 mL/min; POTASSIUM,K 3.8 mmol/L (3.6-5.2); TROPONIN I HIGH SENSITIVITY 6.9 pg/mL (<=60.3)
[2023-02-21 22:23] LABS: ANION GAP 14.8 mmol/L (5.0-14.0)
[2023-02-21 22:38] VITALS: BP 105/66; PULSE 77
== END 2023-02-22 00:38 | disposition home or self-care (01) ==
LOC: JP.ED 21:42
DX: R07.9 Chest pain, unspecified (principal); I25.10 Atherosclerotic heart disease of native coronary artery without angina pectoris; E78.00 Pure hypercholesterolemia, unspecified; I10 Essential (primary) hypertension; K21.9 Gastro-esophageal reflux disease without esophagitis; Z86.16 Personal history of COVID-19; Z88.0 Allergy status to penicillin
CPT/HCPCS: 36415; 71045; 71045-26; 80048; 84484; 85025; 93005; 93010; 99283; 99285

== ENCOUNTER 2023-02-22 20:25 | Emergency (ER) | payer OTHER ==
[2023-02-22] MEDS ORDERED: Iopamidol 755 Mg/ML 100 ML Bottle IV SCH (21:45)
[2023-02-22] MEDS ORDERED: Sodium Chloride 0.9% 100 ML IV SCH (21:45)
[2023-02-22 21:51] LABS: BASOPHILS ABSOLUTE AUTO 0.06 K/uL (0.00-0.10); EOSINOPHILS ABSOLUTE AUTO 0.23 K/uL (0.00-0.40); EOSINOPHILS PERCENT AUTO 3.7 % (0.0-5.4); HEMATOCRIT 43.9 % (38.4-49.7); IMMATURE GRAN ABSOLUTE AUTO 0.02 K/uL (0.00-0.23); IMMATURE GRAN PERCENT AUTO 0.3 % (0.0-0.7); LYMPHOCYTES ABSOLUTE AUTO 1.25 K/uL (0.8-3.3); LYMPHOCYTES PERCENT AUTO 19.8 % (11.4-47.7); MEAN CORPUSCULAR HEMOGLOBIN 31.3 pg (31.6-35.5); MEAN CORPUSCULAR HGB CONC 34.2 g/dL (31.6-35.5); MEAN CORPUSCULAR VOLUME 91.5 fL (81.4-99.0); MONOCYTES ABSOLUTE AUTO 0.55 K/uL (0.20-0.90); MONOCYTES PERCENT AUTO 8.7 % (3.3-12.6); NEUTROPHILS ABSOLUTE AUTO 4.19 K/uL (1.0-7.6); NEUTROPHILS PERCENT AUTO 66.5 % (40.0-78.1); PLATELET COUNT,PLT 182 K/uL (130-375); WHITE BLOOD CELL COUNT,WBC 6.3 K/uL (3.2-11.0)
[2023-02-22 22:11] LABS: A/G RATIO 1.1 (1.2-2.2); ALANINE AMINOTRANSFERASE,ALT 28 U/L (12-78); ALBUMIN 3.5 g/dL (3.4-5.0); ALKALINE PHOSPHATASE 105 U/L (46-116); ASPARTATE AMNIOTRANSFERASE,AST 19 U/L (15-37); BILIRUBIN TOTAL 0.5 mg/dL (0.2-1.0); BLOOD UREA NITROGEN,BUN 15 mg/dL (7-18); CALCIUM 8.1 mg/dL (8.5-10.1); CARBON DIOXIDE,CO2 29 mmol/L (21-32); CHLORIDE,CL 102 mmol/L (100-108); CREATININE 1.3 mg/dL (0.8-1.3); EST CRCL DRUG DOSING (CG) 60.43 mL/min; ESTIMATED GFR 63 mL/min (>60); GLUCOSE RANDOM 108 mg/dL (74-106); POTASSIUM,K 4.2 mmol/L (3.6-5.2); PROTEIN TOTAL,TP 6.8 g/dL (6.4-8.2); SODIUM,NA 138 mmol/L (140-148)
[2023-02-22 22:12] LABS: ANION GAP 11.2 mmol/L (5.0-14.0)
[2023-02-22 22:38] VITALS: BP 118/81; PULSE 68
== END 2023-02-23 00:41 | disposition home or self-care (01) ==
LOC: JP.ED 20:25
DX: R07.1 Chest pain on breathing (principal); R06.02 Shortness of breath; F17.210 Nicotine dependence, cigarettes, uncomplicated; I10 Essential (primary) hypertension; I25.10 Atherosclerotic heart disease of native coronary artery without angina pectoris; E78.00 Pure hypercholesterolemia, unspecified; E66.9 Obesity, unspecified; Z95.5 Presence of coronary angioplasty implant and graft; Z86.16 Personal history of COVID-19; Z79.82 Long term (current) use of aspirin; Z79.899 Other long term (current) drug therapy; Z88.0 Allergy status to penicillin; Z88.8 Allergy status to other drugs, medicaments and biological substances; Z68.34 Body mass index [BMI] 34.0-34.9, adult
CPT/HCPCS: 36415; 71275; 80053; 85025; 85379; 99283; 99285; J3490; Q9967

== ENCOUNTER 2023-03-06 15:57 | Emergency (ER) | payer OTHER ==
[2023-03-06] MEDS ORDERED: Sodium Chloride 0.9% 10 ML Syringe FLUSH PRN (16:00)
[2023-03-06] MEDS ORDERED: Morphine 2 MG/ML SYRINGE IVPUSH PRN (16:08)
[2023-03-06 16:12] LABS: BASOPHILS ABSOLUTE AUTO 0.07 K/uL (0.00-0.10); BASOPHILS PERCENT AUTO 1.2 % (0.1-1.3); EOSINOPHILS ABSOLUTE AUTO 0.23 K/uL (0.00-0.40); HEMATOCRIT 44.9 % (38.4-49.7); HEMOGLOBIN 15.3 g/dL (12.9-16.9); IMMATURE GRAN PERCENT AUTO 0.3 % (0.0-0.7); LYMPHOCYTES ABSOLUTE AUTO 1.53 K/uL (0.8-3.3); LYMPHOCYTES PERCENT AUTO 26.7 % (11.4-47.7); MEAN CORPUSCULAR HGB CONC 34.1 g/dL (31.6-35.5); MEAN CORPUSCULAR VOLUME 91.1 fL (81.4-99.0); MONOCYTES ABSOLUTE AUTO 0.45 K/uL (0.20-0.90); MONOCYTES PERCENT AUTO 7.9 % (3.3-12.6); NEUTROPHILS ABSOLUTE AUTO 3.42 K/uL (1.0-7.6); NEUTROPHILS PERCENT AUTO 59.9 % (40.0-78.1); PLATELET COUNT,PLT 142 K/uL (130-375); RED BLOOD CELL COUNT 4.93 M/uL (4.14-5.76); WHITE BLOOD CELL COUNT,WBC 5.7 K/uL (3.2-11.0)
[2023-03-06 16:17] LABS: IMMATURE GRAN ABSOLUTE AUTO 0.02 K/uL (0.00-0.23)
[2023-03-06 16:32] LABS: INR 0.9; PROTHROMBIN TIME 9.5 sec (9.2-10.6); PTT,PARTIAL THROMBOPLSTIN TIME 24.3 sec (21.8-27.3)
[2023-03-06 16:34] LABS: CALCIUM 8.5 mg/dL (8.5-10.1); EST CRCL DRUG DOSING (CG) 78.56 mL/min; POTASSIUM,K 3.9 mmol/L (3.6-5.2); TROPONIN I HIGH SENSITIVITY 7.4 pg/mL (<=60.3)
[2023-03-06 16:35] LABS: ANION GAP 10.9 mmol/L (5.0-14.0)
[2023-03-06 18:35] VITALS: BP 146/88; PULSE 53
== END 2023-03-06 18:46 ==
LOC: JP.ED 15:57
DX: R07.9 Chest pain, unspecified (principal); F41.9 Anxiety disorder, unspecified; I25.10 Atherosclerotic heart disease of native coronary artery without angina pectoris; I10 Essential (primary) hypertension; K21.9 Gastro-esophageal reflux disease without esophagitis; E66.9 Obesity, unspecified; Z86.16 Personal history of COVID-19; Z79.82 Long term (current) use of aspirin; Z79.899 Other long term (current) drug therapy; Z88.0 Allergy status to penicillin; Z88.8 Allergy status to other drugs, medicaments and biological substances
CPT/HCPCS: 36415; 71045; 71045-26; 80048; 84484; 85025; 85610; 85730; 93005; 93010; 99284; 99285

== ENCOUNTER → 2023-03-21 | Day surgery (SDC) | payer OTHER ==
[~2023-03-21] MED LIST changes: +Midazolam 1 MG/ML 2 ML SDV ONE; -Neostigmine Methylsulfate 1 MG/ML 5 ML Syringe ONE; +Neostigmine Methylsulfate 10 MG/10 ML MDV ONE
[2023-03-21 07:01] LABS: HEMATOCRIT 43.9 % (38.4-49.7); HEMOGLOBIN 14.9 g/dL (12.9-16.9); MEAN CORPUSCULAR HGB CONC 33.9 g/dL (31.6-35.5); MEAN CORPUSCULAR VOLUME 91.5 fL (81.4-99.0); RED BLOOD CELL COUNT 4.8 M/uL (4.14-5.76); WHITE BLOOD CELL COUNT,WBC 5.8 K/uL (3.2-11.0)
[2023-03-21] MEDS: Lactated Ringers 1,000 ML IV SCH (07:04)
[2023-03-21] MEDS: Nozin Nasal Sanitizer NASBOTH ONE (07:08)
[2023-03-21 07:23] LABS: ALANINE AMINOTRANSFERASE,ALT 29 U/L (12-78); ALBUMIN 3.4 g/dL (3.4-5.0); ALKALINE PHOSPHATASE 93 U/L (46-116); ANION GAP 6.7 mmol/L (5.0-14.0); ASPARTATE AMNIOTRANSFERASE,AST 18 U/L (15-37); BILIRUBIN TOTAL 0.5 mg/dL (0.2-1.0); BLOOD UREA NITROGEN,BUN 10 mg/dL (7-18); CALCIUM 8.2 mg/dL (8.5-10.1); CARBON DIOXIDE,CO2 28 mmol/L (21-32); CHLORIDE,CL 105 mmol/L (100-108); CREATININE 1.1 mg/dL (0.8-1.3); EST CRCL DRUG DOSING (CG) 71.41 mL/min; ESTIMATED GFR 77 mL/min (>60); GLUCOSE RANDOM 97 mg/dL (74-106); PROTEIN TOTAL,TP 6.9 g/dL (6.4-8.2); SODIUM,NA 140 mmol/L (140-148)
[2023-03-21] MEDS: ceFAZolin 2 GM in Premix Bag 1 BAG IV ONE (07:50)
[2023-03-21] MEDS: Bupivacaine 0.5% 50 ML MDV ONE (08:45)
[2023-03-21] MEDS: Acetaminophen/oxyCODONE 325-5 MG Tab PO ONE (11:23)
[2023-03-21 11:31] VITALS: BP 110/72; PULSE 53
== END ==
LOC: JP.SDS 06:02
PROVIDERS: ATTEND Specialist
DX: M75.101 Unspecified rotator cuff tear or rupture of right shoulder, not specified as traumatic (principal); I10 Essential (primary) hypertension; F32.A Depression, unspecified; G47.33 Obstructive sleep apnea (adult) (pediatric); E66.9 Obesity, unspecified; Z68.35 Body mass index [BMI] 35.0-35.9, adult; Z79.82 Long term (current) use of aspirin; Z79.899 Other long term (current) drug therapy
CPT/HCPCS: 29827; 36415; 80053; 85027; A9270; C1713; J0330; J0665; J0690; J1100; J2250; J2405; J2704; J2710; J3010; J3490; J7120

== ENCOUNTER 2024-02-29 08:14 | Day surgery (SDC) | payer BC, OTHER ==
[2024-02-29] MEDS: Lactated Ringers 1,000 ML IV SCH (09:03)
[2024-02-29] MEDS ORDERED: Midazolam 1 MG/ML 2 ML SDV ONE (10:47)
[2024-02-29] MEDS ORDERED: Propofol 200 MG/20 ML SDV ONE (10:47)
[2024-02-29] MEDS ORDERED: fentaNYL 50 MCG/ML SDV ONE (10:47)
[2024-02-29 13:37] VITALS: BP 136/84; PULSE 51
== END 2024-02-29 13:20 | disposition home or self-care (01) ==
LOC: JP.SDS 08:14
PROVIDERS: ATTEND Family Medicine
DX: Z12.11 Encounter for screening for malignant neoplasm of colon (principal); D12.2 Benign neoplasm of ascending colon; D12.3 Benign neoplasm of transverse colon; K21.9 Gastro-esophageal reflux disease without esophagitis; I10 Essential (primary) hypertension; I25.10 Atherosclerotic heart disease of native coronary artery without angina pectoris; Z95.5 Presence of coronary angioplasty implant and graft
CPT/HCPCS: 00811; 45380; 45385; 88305; J2250; J2704; J3010; J7120